=== PATIENT | male | born 1980 | race Caucasian/White ===

== ENCOUNTER 2019-12-29 08:23 | Day surgery (SDC) | payer BC, SELFPAY ==
[2019-12-29] VITALS (20 sets, daily range): BP systolic 93–134; BP diastolic 49–101; PULSE 59–73; RESP 12–20; TEMP 36.5–37.1; O2SAT 96–100
--- NOTE | 2019-12-29 08:44 | ED.GENADULT ---
HPI - General Adult General Chief complaint: Skin/Abscess/Foreign Body Stated complaint: FOOD STUCK IN ESOPHAGUS Time Seen by Provider: 12/29/19 08:28 History of Present Illness HPI narrative: Patient is a 39-year-old male who presents ER with esophageal foreign body. Reports he had his first bite of pot roast this morning and it immediately became stuck. He tried drinking water and soda to dislodge the foreign body but did not work. Has history of this occurring in the past and last had balloon dilation 8 years ago [place]. Reports she has been feeling some intermittent dysphagia recently but had not been taking his PPI. No fevers or chills or sweats. Related Data Home Medications Medication Instructions Recorded Confirmed atorvastatin 20 mg PO DAILY 12/29/19 clonazepam 0.5 mg PO DAILY 12/29/19 diclofenac sodium 75 mg PO DAILY 12/29/19 escitalopram oxalate 10 mg PO DAILY 12/29/19 esomeprazole magnesium 40 mg PO DAILY 12/29/19 Allergies Allergy/AdvReac Type Severity Reaction Status Date / Time Sulfa (Sulfonamide Allergy Mild Verified 12/28/14 15:12 Antibiotics) [place] Allergy Unknown THRU Uncoded 12/28/14 15:13 ALLERGY TESTING Review of Systems Review of Systems: All systems reviewed & are unremarkable except as noted in HPI and below ENT: Reports dysphagia Cardiovascular: Cardiovascular: Reports chest pain (Fullness from esophageal foreign body) and Denies radiating jaw, neck or arm pain Respiratory: Respiratory: Denies cough and Denies dyspnea Gastrointestinal: Gastrointestinal: Denies abdominal pain, Denies nausea and Denies vomiting PMFSH Past Medical History Medical History (Updated 12/29/19 @ 09:08 by Srinivasan Girard MD) GERD (gastroesophageal reflux disease) Hypercholesterolemia Schatzki's ring Surgical History Surgical History (Updated 12/29/19 @ 08:45 by Srinivasan Girard MD) History of appendectomy History of esophagogastroduodenoscopy (EGD) Social History Social History (Updated 12/29/19 @ 08:48 by Srinivasan Girard MD) Smoking status: Never smoker Exam Narrative: Exam Narrative: GENERAL: Well-appearing, well-nourished, and in no acute distress. HEAD: Normocephalic, atraumatic. ENT: Mucous membranes moist. CHEST: Clear to auscultation. No respiratory distress. HEART: Regular rate and rhythm. Normal peripheral pulses. ABDOMEN: Soft, nontender, nondistended. EXTREMITIES: Normal range of motion. No edema. NEURO: Alert and oriented x3. Course Course Emergency Course: Discussed with Dr. Whatley, will take to the GI lab. Vital Signs Vital signs: Vital Signs Temperature 98.8 F 12/29/19 08:28 Pulse Rate 64 12/29/19 08:28 Respiratory Rate 20 12/29/19 08:28 Blood Pressure 104/75 12/29/19 08:28 Pulse Oximetry 99 12/29/19 08:28 Temperature 98.8 F 12/29/19 08:28 Pulse Rate 68 12/29/19 09:01 Respiratory Rate 16 12/29/19 09:01 Blood Pressure 124/91 H 12/29/19 09:01 Pulse Oximetry 97 12/29/19 09:01 Medical Decision Making Vital Signs Vital Signs: Vital Signs Temperature 98.8 F 12/29/19 08:28 Pulse Rate 64 12/29/19 08:28 Respiratory Rate 20 12/29/19 08:28 Blood Pressure 104/75 12/29/19 08:28 Pulse Oximetry 99 12/29/19 08:28 Temperature 98.8 F 12/29/19 08:28 Pulse Rate 68 12/29/19 09:01 Respiratory Rate 16 12/29/19 09:01 Blood Pressure 124/91 H 12/29/19 09:01 Pulse Oximetry 97 12/29/19 09:01 Discharge Plan Discharge Clinical Impression: Esophageal obstruction due to food impaction Patient Disposition: Still a Patient Condition: Stable
--- NOTE | 2019-12-29 10:12 | WPDANESEPPF ---
Anes - Initial Pre Proc Eval Procedure: Operation Date: 12/29/19 10:30 Proposed Procedures p Esophagogastroduodenoscopy - Jacky Whatley MD Date/Time: 12/29/19 10:12 Surgeon: Jacky Whatley MD Pre Op Diagnosis: FOOD STUCK IN ESOPHAGUS Patient Data Age: 39 Gender: M Height: 6 ft Weight: 87.8 kg Last Vital Signs Temp 98.8 F 12/29/19 08:28 Pulse 60 12/29/19 09:46 Resp 12 12/29/19 09:46 BP 123/80 12/29/19 09:46 Pulse Ox 99 12/29/19 09:46 Allergies Allergy/AdvReac Type Severity Reaction Status Date / Time Sulfa (Sulfonamide Allergy Mild Verified 12/28/14 15:12 Antibiotics) [place] Allergy Unknown THRU Uncoded 12/28/14 15:13 ALLERGY TESTING Home Medications Medication Instructions Recorded Confirmed Type atorvastatin 20 mg PO DAILY 12/29/19 History clonazepam 0.5 mg PO DAILY 12/29/19 History diclofenac sodium 75 mg PO DAILY 12/29/19 History escitalopram oxalate 10 mg PO DAILY 12/29/19 History esomeprazole magnesium 40 mg PO DAILY 12/29/19 History Patient hx anesthesia problems: none Family hx anesthesia problems: none PMFSH Past Medical History Medical History (Updated 12/29/19 @ 10:48 by Jacky Whatley MD) GERD (gastroesophageal reflux disease) Hypercholesterolemia Schatzki's ring Surgical History Surgical History (Updated 12/29/19 @ 08:45 by Srinivasan Girard MD) History of appendectomy History of esophagogastroduodenoscopy (EGD) Social History Social History (Updated 12/29/19 @ 08:48 by Srinivasan Girard MD) Smoking status: Never smoker Anes - Eval Final PreProcedure Day of Procedure 12/29/19 10:12 Patient weight: normal Heart: regular rate and rhythm Lungs: clear to auscultation Airway: Mallampati scale class II Neurological: alert and oriented Last oral intake: >/= 8 hours ASA classification: II Emergent: no Anesthetic plan: proceed Anesthesia type and monitoring: general GIVS and standard monitoring Informed Consent: The patient's anesthetic plan and its attendant risks and benefits were discussed with the patient/family/POA. Questions were solicited and answers provided to the satisfaction of the patient/family/POA.
[2019-12-29] MEDS: LACTATED RINGERS 1,000 ML 150 ML IV CONT (10:22)
--- NOTE | 2019-12-29 10:46 | WPDGICN ---
Assessment and Plan Assessment and plan (1) Esophageal obstruction due to food impaction: Code(s): K22.2 - Esophageal obstruction; T18.128A - Food in esophagus causing other injury, initial encounter Status: Acute Assessment and Plan: Patient has a food impaction. Likely related esophageal stricture ring. He has a history of a Schatzki's ring. Plans for EGD to remove the food bolus. Possibly to dilate any stricture ring that may have occurred. Further recommendations will be given after endoscopy. (2) Schatzki's ring: Code(s): K22.2 - Esophageal obstruction Status: Inactive GI Consult Note Consult date/time: 12/29/19 10:46 HPI: Cliff Reid III is a 39 year old male Seen in evaluation at the request of the emergency room. Patient ate roast beef early this morning and noticed it become lodged in the mid chest. Patient subsequently has been unable to eat or swallow. He states in the past he has had food impaction at least once. He has had 2-3 endoscopies in the past. He was told that he had a Schatzki's ring. This was dilated perhaps 10 years ago. Patient does note occasional heartburn. Occasional slow passage of food. He takes Nexium as needed intermittently. Patient denies any bleeding or weight loss at this time. Family history noncontributory. Review of Systems Review of Systems: All systems reviewed & are unremarkable except as noted in HPI and below PMFSH Past Medical History Medical History GERD (gastroesophageal reflux disease) Hypercholesterolemia Schatzki's ring Surgical History Surgical History (Updated 12/29/19 @ 08:45 by Srinivasan Girard MD) History of appendectomy History of esophagogastroduodenoscopy (EGD) Social History Social History (Updated 12/29/19 @ 08:48 by Srinivasan Girard MD) Smoking status: Never smoker Meds Home Medications and Allergies Home Medications Medication Instructions Recorded Confirmed Type atorvastatin 20 mg PO DAILY 12/29/19 History clonazepam 0.5 mg PO DAILY 12/29/19 History diclofenac sodium 75 mg PO DAILY 12/29/19 History escitalopram oxalate 10 mg PO DAILY 12/29/19 History esomeprazole magnesium 40 mg PO DAILY 12/29/19 History Allergies Allergy/AdvReac Type Severity Reaction Status Date / Time Sulfa (Sulfonamide Allergy Mild Verified 12/28/14 15:12 Antibiotics) [place] Allergy Unknown THRU Uncoded 12/28/14 15:13 ALLERGY TESTING Vital Signs Vital Signs - 24 hr 12/29/19 08:28 12/29/19 08:33 12/29/19 08:45 Temperature 98.8 F Pulse Rate 64 71 59 L Respiratory Rate 20 16 17 Blood Pressure 104/75 Pulse Oximetry 99 100 98 12/29/19 08:46 12/29/19 09:00 12/29/19 09:01 Temperature Pulse Rate 69 63 68 Respiratory Rate 15 16 16 Blood Pressure 134/92 H 124/91 H Pulse Oximetry 97 100 97 12/29/19 09:02 12/29/19 09:15 12/29/19 09:16 Temperature Pulse Rate 65 63 66 Respiratory Rate 19 17 12 Blood Pressure 131/88 Pulse Oximetry 99 100 98 12/29/19 09:30 12/29/19 09:33 12/29/19 09:45 Temperature Pulse Rate 73 69 60 Respiratory Rate 20 16 12 Blood Pressure 126/84 Pulse Oximetry 98 98 98 12/29/19 09:46 12/29/19 09:47 12/29/19 10:00 Temperature Pulse Rate 60 71 69 Respiratory Rate 12 18 20 Blood Pressure 123/80 Pulse Oximetry 99 99 98 12/29/19 10:01 12/29/19 10:23 Temperature 97.7 F Pulse Rate 72 61 Respiratory Rate 20 16 Blood Pressure 134/101 H 120/75 Pulse Oximetry 99 98 Exam Narrative: Exam Narrative: Physical exam reveals patient to be alert. Vital signs stable. HEENT exam unremarkable. Lungs are clear to auscultation and percussion. Heart is without murmur or extra sounds. Abdominal exam bowel sounds are present soft nontender with no organomegaly. Digital external rectal exam deferred at this time.
== END 2019-12-29 12:21 | disposition home or self-care (01) ==
LOC: ANHED 08:55 → ANHENDO 09:07
PROVIDERS: Emergency Provider Emergency Medicine; PCP Internal Medicine Geriatric Medicine; Visit Provider Internal Medicine Gastroenterology
PROC: 0DJ08ZZ Inspection of Upper Intestinal Tract, Via Natural or Artificial Opening Endoscopic (ICD-10-PCS; CPT 43235; principal; 2019-12-29 10:30)
DX: T18.128A Food in esophagus causing other injury, initial encounter (principal); K22.2 Esophageal obstruction; K21.9 Gastro-esophageal reflux disease without esophagitis; E78.00 Pure hypercholesterolemia, unspecified
CPT/HCPCS: 43247; 43239; 43450; 88305; 99285; J2704; J7120

== ENCOUNTER 2020-12-20 20:03 | Emergency (ER) | payer OTHER, BC, SELFPAY ==
--- NOTE | ~2020-12-20 | CT_ITS ---
EXAMINATION: CT cervical spine wo con DATE: 12/20/2020 23:55 INDICATION: Neck pain. Head injury. TECHNIQUE: Computed tomography (CT) of the cervical spine was performed without intravenous contrast. Automated exposure control and iterative reconstruction technique were employed. The dose-length pro duct was 444.80 mGy-cm. COMPARISON: None FINDINGS: There is mild scarring at the lung apices. C1 ring is ununited posteriorly, a normal varian t. There is 4 degrees levocurvature of cervical spine. Vertebral body heights are normal. There is mi ldly decreased disc height at C3-C4. The following disc levels are specifically discussed: C2-C3: There is no uncovertebral joint osteoarthritis. There is mild bilateral facet joint osteoarthr itis. There is no neural foraminal stenosis. There is no central canal stenosis. C3-C4: There is mild right uncovertebral joint osteoarthritis. There is mild bilateral facet joint os teoarthritis. There is mild right neural foraminal stenosis. There is no central canal stenosis. C4-C5: There is mild left uncovertebral joint osteoarthritis. There is mild bilateral facet joint ost eoarthritis. There is no neural foraminal stenosis. There is no central canal stenosis. C5-C6: There is no uncovertebral joint osteoarthritis. There is mild right facet joint osteoarthritis . There is no neural foraminal stenosis. There is no central canal stenosis. C6-C7: There is no uncovertebral joint osteoarthritis. There is mild right facet joint osteoarthritis . There is no neural foraminal stenosis. There is no central canal stenosis. C7-T1: There is no uncovertebral joint osteoarthritis. There is mild bilateral facet joint osteoarthr itis. There is no neural foraminal stenosis. There is no central canal stenosis. IMPRESSION: 1. No fracture. 2. Mild cervical spondylosis. Reviewed, dictated and finalized at location A.
--- NOTE | ~2020-12-20 | CT_ITS ---
EXAMINATION: CT brain wo con DATE: 12/20/2020 23:55 INDICATION: Head injury. TECHNIQUE: Computed tomography (CT) of the head was performed without intravenous contrast. The mA wa s adjusted according to patient size. Iterative reconstruction technique was employed. The dose-lengt h product was 605.33 mGy-cm. COMPARISON: None FINDINGS: There is no intracranial hemorrhage, acute infarction, or abnormal intracranial mass lesion . The ventricles are normal in size. The paranasal sinuses are clear. The mastoid air cells are ani l. There is frontal scalp soft tissue swelling. IMPRESSION: 1. Normal brain. Reviewed, dictated and finalized at location A. IMPRESSION: 1. Normal brain.
[2020-12-20 20:22] VITALS: BP 141/92; PULSE 70; RESP 16; TEMP 36.9; O2SAT 100
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
[2020-12-20 23:54] VITALS: BP 131/81; PULSE 63; RESP 14; O2SAT 100
[2020-12-21 00:47] VITALS: BP 111/93; PULSE 63; RESP 18; O2SAT 100
== END 2020-12-21 00:47 | disposition home or self-care (01) ==
PROVIDERS: Emergency Provider Emergency Medicine; PCP Internal Medicine Geriatric Medicine
DX: S06.9X9A Unspecified intracranial injury with loss of consciousness of unspecified duration, initial encounter (principal); S00.81XA Abrasion of other part of head, initial encounter; S16.1XXA Strain of muscle, fascia and tendon at neck level, initial encounter; K21.9 Gastro-esophageal reflux disease without esophagitis; E78.00 Pure hypercholesterolemia, unspecified; K22.2 Esophageal obstruction; Y35.811A Legal intervention involving manhandling, law enforcement official injured, initial encounter
CPT/HCPCS: 70450; 72125; 99284; L0140

== ENCOUNTER → 2022-03-07 15:13 | Outpatient (CLI) | payer BC, SELFPAY ==
--- NOTE | ~2022-03-07 | XR_ITS ---
EXAMINATION: XR wrist LT min 3V DATE: 03/07/2022 15:51 INDICATION: Left wrist injury and pain. TECHNIQUE: 4 views of left wrist were obtained. COMPARISON: None. FINDINGS: Bone alignment is normal. No fracture. Joint spaces are well maintained. IMPRESSION: 1. Normal left wrist. Reviewed, dictated and finalized at location A. R MACHINE OPERATOR IMPRESSION: 1. Normal left wrist.
== END ==
PROVIDERS: PCP Internal Medicine Geriatric Medicine; Visit Provider Internal Medicine Geriatric Medicine
DX: S69.92XA Unspecified injury of left wrist, hand and finger(s), initial encounter (principal)
CPT/HCPCS: 73110

== ENCOUNTER 2024-01-02 00:39 | Day surgery (SDC) | payer BC, SELFPAY ==
[2023-12-26 12:17] VITALS: BMI 25.1
--- NOTE | 2023-12-26 12:23 | PC.NURSE ---
Report to the Outpatient Waiting Room, entrance under the green pavilion located off [facility], at time _0930_ on date _[id number]_. Planned Procedure Time: _1130_.? Time changes happen often and if your time is changed the preop area will call you the afternoon before. - You and your visitor will be asked to self-screen and do not enter if you have any COVID symptoms. Please call surgeon if you need to reschedule. - A mask is optional within the hospital at this time. Patients may have clear liquids (water, carbonated beverages, clear teas, apple juice) until 3 hours prior to surgery with a maximum of 20 ounces. - No food from midnight until time of surgery and no smoking Take only the following medications with a SIP of water on the morning of surgery: __Wellbutrin DO NOT STOP ANY OF YOUR OTHER PRESCRIPTION MEDICATIONS PRIOR TO SURGERY EXCEPT THE FOLLOWING Medications to discontinue per physician ___None Please no make-up, nail welsh, hairspray, perfume, deodorant, or body powder the day of surgery.? No jewelry (including any body piercings) or valuables the day of surgery, leave them at home.? Please take a shower or bath the night before, or the morning of, surgery with an antibacterial soap.? Wear comfortable, loose fitting clothing.? - Jewelry must be removed prior to entering the operating room.? Rings and piercings that are not removed may be cut off. - The hospital will not accept responsibility for valuables.? - Please leave all valuables, including medications, at home the day of surgery. If you are going home after surgery, a licensed class b driver must drive you home.? - NO public transportation without another adult if you receive anesthesia. - We recommend that an adult stay with you for 24 hours following discharge. - We also recommend that you do not drive, make important decision, drink alcoholic beverages, or take any drugs that were not prescribed by your health care provider for at least 24 hours after your discharge time. Follow any additional instructions given to you from your surgeon. Telephone instructions given to __Rich___and asked if any additional questions and then verbalized understanding. Patient advised to call surgeon office or pre surgery nurse liaison [phone] if any additional questions.
--- NOTE | 2024-01-02 07:15 | WPDHPUPDATE1 ---
History and Physical Update Update Date/Time: 01/02/24 07:15 History and Physical has been reviewed, including an updated exam of the patient. There are NO changes in the patient's condition. Risks, benefits, and alternatives have been discussed and questions answered. Patient agrees to proceed with procedure.
[2024-01-02 10:00] VITALS: BP 116/79; PULSE 72; RESP 14; TEMP 35.9; O2SAT 98
[2024-01-02] MEDS: LACTATED RINGERS 1,000 ML 30 ML IV CONT (10:00)
--- NOTE | 2024-01-02 12:03 | WPDANESEPPF ---
Anes - Initial Pre Proc Eval Procedure: Operation Date: 01/02/24 11:30 Proposed Procedures p Partial Plantar Fasciectomy Right Foot - Ahmet Gallegos Jr., DPM Date/Time: 01/02/24 12:03 Surgeon: Ahmet Gallegos Jr., DPM Pre Op Diagnosis: Plantar Fasciitis Right Foot Patient Data Age: 43 Gender: M Height: 1.83 m Weight: 85.8 kg Last Vital Signs Temp 96.7 F L 01/02/24 10:00 Pulse 72 01/02/24 10:00 Resp 14 01/02/24 10:00 BP 116/79 01/02/24 10:00 Pulse Ox 98 01/02/24 10:00 O2 Del Method Room Air 01/02/24 10:00 Allergies Allergy/AdvReac Type Severity Reaction Status Date / Time Sulfa (Sulfonamide Allergy Mild Unknown Verified 01/02/24 10:13 Antibiotics) [place] Allergy Unknown THRU Uncoded 01/02/24 10:13 ALLERGY TESTING Home Medications Medication Instructions Recorded Confirmed Type atorvastatin 20 mg tablet 20 mg PO DAILY 12/29/19 12/26/23 History clonazepam 0.5 mg tablet 0.5 mg PO DAILY 12/29/19 12/26/23 History escitalopram oxalate 10 mg tablet 10 mg PO DAILY 12/29/19 12/26/23 History bupropion HCl 150 mg 24 hr tablet, 150 mg PO DAILY 12/26/23 12/26/23 History extended release Patient hx anesthesia problems: post op nausea/vomiting Family hx anesthesia problems: none Results Review: All pre-operative results and documents have been reviewed as part of the pre-operative evaluation. [facility] Past Medical History Medical History GERD (gastroesophageal reflux disease) Hypercholesterolemia Schatzki's ring Surgical History Surgical History History of appendectomy History of esophagogastroduodenoscopy (EGD) Social History Social History Smoking status: Never smoker Alcohol intake: current Drinks per week: 2 Living arrangements: with family Spiritual care concerns: No Anes - Eval Final PreProcedure Day of Procedure 01/02/24 12:03 Patient weight: normal Heart: regular rate and rhythm Lungs: clear to auscultation Airway: Mallampati scale class II Neurological: alert and oriented Last oral intake: >/= 8 hours ASA classification: II Emergent: no Anesthetic plan: proceed Anesthesia type and monitoring: general GIVS and standard monitoring Results Review: All pre-operative results and documents have been reviewed as part of the pre-operative evaluation. Hyperlipidemia. Informed Consent: The patient's anesthetic plan and its attendant risks and benefits were discussed with the patient/family/POA. Questions were solicited and answers provided to the satisfaction of the patient/family/POA.
[2024-01-02] MEDS: LIDOCAINE HCL 2% PF INJ 5 ML VIAL 10 ML INFILTRATE (12:37)
[2024-01-02 12:51] VITALS: BP 103/70; PULSE 63; RESP 18; O2SAT 100
[2024-01-02] MEDS: SCOPOLAMINE 1 MG PATCH 1 PATCH TRANSDERM (12:51)
--- NOTE | 2024-01-02 13:07 | P.OP_ITS ---
Procedure Note - Detailed Date of Procedure 01/02/24 Pre-op Diagnosis Plantar Fasciitis Right Foot Post-op Diagnosis Same Procedure Performed Partial plantar fasciectomy right foot Surgeon Ahmet Gallegos Jr., DPM Anesthesia MAC and Local Indications Chronic inferior right heel pain Findings Hypertrophy and degeneration of the medial plantar fascia Description of Procedure Under mild sedation, the patient was brought in to the operating room, placed on the operating table in the supine position. A pneumatic ankle tourniquet was placed about the patient's ankle. Following general anesthesia, local anesthesia was obtained about the affected lower extremity utilizing 20 mL of a one to mix of 2% Lidocaine plain and 0.5% Marcaine plain to the tibial nerve. The foot was then scrubbed, prepped, and draped in the usual aseptic manner. An Esmarch bandage was then used to exsanguinate the patient's foot and the pneumatic ankle tourniquet was then inflated. Next, an incision was made starting distal to the medial tubercle of the calcaneus extending distally 3cm. All bleeders were cauterized as necessary. Next the dissection was continued down to the plantar fascia it was exposed medially and laterally with [employer] retractors. It was noted to be hypertrophied and degeneration of the medial plantar fascia Two thirds of the medial plantar fascia was transected and a 4mm portion was also cut and di scarded. The wound site was flushed with sterile saline. The deep subcutaneous tissue was reapproximated with 3.0 Vicryl and the skin was reapproximated with 2.0 Prolene and 3.0 Prolene in Vertical mattress and Simple interrupted suture technique. Upon completion of the procedure, the plantar incision was dressed with adaptic, 4x4 gauze, kerlix and coban. The pneumatic ankle tourniquet was then deflated and a prompt hyperemic response was noted to all digits of the affected foot. A CAM Walker boot was then applied. The patient did very well with the procedure and the anesthesia. The patient was transferred to the recovery room with vital signs stable and vascular status intact to all toes of the affected foot. Following a period of postoperative monitoring, the patient will be discharged home on the following written and oral postoperative instructions: 1. The patient should keep the dressing clean, dry, and intact. Use a cast protector bag with showers. 2. The patient will be strictly protected weight bearing with CAM walker boot. 3. Patient should ice and elevate the affected foot when at rest. 4. The patient is to contact Dr. Gallegos for all postop care and if any problems arise. 5. Prescriptions were written for Percocet 5/325 dispensed 40 to be taken 1 p.o. q.4-6 hours as needed for severe pain. Estimated Blood Loss 1 Drains No Packing No Pathology None sent Complications No immediate complications Condition Stable Disposition Same day
[2024-01-02 13:15] VITALS: BP 97/69; PULSE 52; RESP 16; O2SAT 98
[2024-01-02 13:45] VITALS: BP 123/87; PULSE 56; RESP 16
== END 2024-01-02 14:06 | disposition home or self-care (01) ==
PROVIDERS: PCP Internal Medicine Geriatric Medicine; Visit Provider Podiatrist Foot & Ankle Surgery
PROC: (CPT 28119; principal; 2024-01-02 11:30)
DX: M72.2 Plantar fascial fibromatosis (principal); K21.9 Gastro-esophageal reflux disease without esophagitis; E78.00 Pure hypercholesterolemia, unspecified; Z87.19 Personal history of other diseases of the digestive system; Z98.890 Other specified postprocedural states
CPT/HCPCS: 28060; A9270; J2003; J2250; J2704; J3010; J7120